=== PATIENT | female | born 1935 | race Caucasian/White ===

== ENCOUNTER 2018-10-28 21:04 | Inpatient (IN) ==
--- NOTE | 2018-10-28 23:27 | XR ---
EXAM DATE: 10/28/2018 11:16 PM EST AGE/SEX: 83 years / Female INDICATIONS: Evaluate for pneumonia, pneumothorax or communicable disease. Post fall left hip pain. CLINICAL DATA: This is the patient's initial encounter. Patient reports that signs and symptoms have been present for 1 day and indicates a pain score of 0/10. MEDICAL/SURGICAL HISTORY: Gastroesophageal reflux disease. None. COMPARISON: No prior exams available for comparison. FINDINGS: A single AP view of the chest demonstrates the lungs to be symmetrically aerated without evidence of mass, infiltrate or effusion. The cardiomediastinal contours are unremarkable. Osseous structures a re intact. CONCLUSION: 1. No acute cardiopulmonary disease. Electronically signed by: Freddy Hawthorne MD Board Certified Radiologist 10/28/2018 11:25 PM EST
--- NOTE | 2018-10-28 23:28 | XR ---
EXAM DATE: 10/28/2018 11:19 PM EST AGE/SEX: 83 years / Female INDICATIONS: Left hip pain post fall tonight. CLINICAL DATA: This is the patient's initial encounter. Patient reports that signs and symptoms have been present for 1 day and indicates a pain score of 9/10. MEDICAL/SURGICAL HISTORY: Gastroesophageal reflux disease. None. COMPARISON: No prior exams available for comparison. FINDINGS: Intertrochanteric left femoral neck fracture with slight cephalad angulation. Remaining osseous struc tures are intact. Joint spaces are anatomic. No radiopaque foreign bodies. CONCLUSION: 1. Left femoral neck intertrochanteric fracture. Electronically signed by: Freddy Hawthorne MD Board Certified Radiologist 10/28/2018 11:26 PM EST
--- NOTE | 2018-10-28 23:28 | XR ---
EXAM DATE: 10/28/2018 11:18 PM EST AGE/SEX: 83 years / Female INDICATIONS: Left hip pain post fall tonight. CLINICAL DATA: This is the patient's initial encounter. Patient reports that signs and symptoms have been present for 1 day and indicates a pain score of 9/10. MEDICAL/SURGICAL HISTORY: Gastroesophageal reflux disease. None. COMPARISON: No prior exams available for comparison. FINDINGS: There is an intertrochanteric left femoral neck fracture. Remaining osseous structures are intact. No radiopaque foreign bodies. CONCLUSION: 1. Left femoral intertrochanteric fracture. Electronically signed by: Freddy Hawthorne MD Board Certified Radiologist 10/28/2018 11:27 PM EST
--- NOTE | 2018-10-28 23:29 | XR ---
EXAM DATE: 10/28/2018 11:22 PM EST AGE/SEX: 83 years / Female INDICATIONS: Left ankle pain post fall tonight. CLINICAL DATA: This is the patient's initial encounter. Patient reports that signs and symptoms have been present for 1 day and indicates a pain score of 4/10. MEDICAL/SURGICAL HISTORY: Gastroesophageal reflux disease. None. COMPARISON: No prior exams available for comparison. FINDINGS: Bony structures are intact and in normal alignment. Joints are intact without dislocation or signifi cant arthropathy. Osseous density is normal. Soft tissues are unremarkable. No radiopaque foreign bodies seen. CONCLUSION: 1. No definite acute fracture. Electronically signed by: Freddy Hawthorne MD Board Certified Radiologist 10/28/2018 11:28 PM EST
[2018-10-28 23:30] LABS: Bilirubin,Urine Negative (Negative); Clarity,Urine Slightly Cloudy (Clear); Color,Urine Yellow (Yellw/Straw); Glucose,Urine (UA) Negative (Negative); Leukocyte Esterase,Urine Small (Negative); Nitrite,Urine Negative (Negative); Specific Gravity,Urine 1.025 (1.002-1.035); Urobilinogen,Urine 0.2 mg/dL (Less than 2)
--- NOTE | 2018-10-28 23:31 | ED ---
HPI General Chief Complaint: Fall Stated Complaint: Fall Time Seen by Provider: 10/28/18 22:10 Source: patient Mode of arrival: ambulatory Limitations: no limitations History of Present Illness HPI Narrative: 83-year-old female presents to the emergency department by private transportation from home where she had an unwitnessed non-syncopal slip and fall. Patient landed on her left side injuring her left hip left knee and left ankle. Patient states she has been unable to weight-bear since that time. Family members carried her to the hospital. Patient states she did not hit her head did not have loss of consciousness did not injure her neck shoulder elbow wrist left upper extremity left chest wall chest abdomen or pelvis also denies any back pain. Patient complains of pain in the left hip primarily and also pain to the left knee and ankle. No reported deformity. Patient is noted to have shortening and external rotation of the left lower extremity. No previous history of hip injury or hip fracture or pelvic fracture. Patient does have history of dyslipidemia anxiety and restless leg syndrome. Patient takes no blood thinning agents reportedly. Fall occurred approximately 8 PM. MD complaint: Reports fall Onset (ago): hour(s) (3) Fall from: standing Fall witnessed: no Place fall occurred: home Loss of consciousness: none Prolonged down time: no Symptoms prior to fall: Reports none Context: Reports tripped/slipped Location of injury: Denies head, face, mouth, eyes, neck, chest, back, abdomen, pelvis, genitals and buttocks Location of injury - extremities: Left: thigh, knee and ankle Severity: severe Severity scale (1-10): 8 Quality: Reports aching Associated symptoms (after fall): Reports unable to walk; Denies headache, neck pain, numbness, weakness, chest pain, shortness of breath, abdominal pain, hematuria, lightheaded, vertigo and confusion Related Data Home Medications Medication Instructions Recorded Confirmed atorvastatin 20 mg PO QPM 10/29/18 10/29/18 duloxetine 60 mg PO DAILY 10/29/18 10/29/18 rabeprazole 20 mg PO DAILY 10/29/18 10/29/18 Allergies Allergy/AdvReac Type Severity Reaction Status Date / Time niacin Allergy Rash Verified 10/29/18 00:37 Penicillins Allergy Rash Verified 10/28/18 22:08 Review of Systems ROS: all other systems reviewed are negative [facility] Medical History Medical History Anxiety (Acute) DVT (deep venous thrombosis) (Acute) GERD (gastroesophageal reflux disease) (Acute) Surgical History Surgical History H/O dilation and curettage (Acute) Social History Social History Substance History: No History of Abuse Second Hand Smoke Exposure: No Smoking Status: Never smoker How Often Do You Have a Drink Containing Alcohol: Never Recent Travel in [facility] within the Last 8 Weeks: No Recent Out of Country Travel within the Last 8 Weeks: No Immunization History Tetanus Immunization: Unsure Exam Narrative Exam Narrative: GENERAL: Well-nourished, well-developed patient. GCS 15. SKIN: Focused skin assessment warm/dry. HEAD: Normocephalic. Atraumatic. No scalp soft tissue swelling abrasion ecchymosis erythema bony abnormality to palpation. EYES: No scleral icterus. No injection or drainage. ENT: Mucous membranes moist airway is patent NECK: Supple, trachea midline. No JVD or lymphadenopathy. No midline tenderness to direct palpation along the cervical spine no bony step-off CARDIOVASCULAR: Regular rate and rhythm without murmurs, gallops, or rubs. RESPIRATORY: Breath sounds equal bilaterally. No accessory muscle use. GASTROINTESTINAL: Abdomen soft, non-tender, nondistended. MUSCULOSKELETAL: No cyanosis, or edema. Attention left lower extremity shortened and externally rotated. Bilateral radial pulses 2+ to palpation bilateral dorsalis pedis pulses and posterior tibialis pulses 2+ to palpation with brisk capillary refill less than 2 seconds per digit. Patient has no knee or ankle soft tissue swelling ecchymosis or deformity. Patient does have tenderness and mild soft tissue swelling to the lateral aspect of the left hip. Pelvic rock is stable. BACK: Nontender without obvious deformity. No CVA tenderness. Course Initial Documented Vital Signs Temperature 98.5 F 10/28/18 22:05 Pulse Rate 97 H 10/28/18 22:05 Respiratory Rate 18 10/28/18 22:05 Blood Pressure 199/103 H 10/28/18 22:05 Pulse Oximetry 98 10/28/18 22:05 Last Documented Vital Signs Temperature 98.5 F 10/28/18 22:05 Pulse Rate 95 H 10/29/18 03:08 Respiratory Rate 18 10/29/18 03:08 Blood Pressure 174/73 H 10/29/18 03:08 Pulse Oximetry 98 10/29/18 03:08 Medical Decision Making MDM Narrative Medical decision making narrative: 83-year-old female status post non-syncopal fall landing on her left lower extremity presents with shortening and external rotation consistent with hip fracture. IV access obtained specimens collected and sent for resulting imaging studies ordered Chest x-ray shows no acute process EKG is sinus rhythm with no acute abnormality Left hip with pelvis shows acute intertrochanteric fracture; left femur x-ray acute left intertrochanteric fracture and distally no evidence of distal femur or knee abnormality on AP and lateral views and ankle shows no evidence of fractures luxation dislocation. Patient's case discussed with [facility] MD for admission [facility] am consilt to Orthopedist for hip repair; patient and family aware which patient and family are agreeable. Medical Screen Exam Complete: Yes Emergency Medical Condition: Yes Lab Data Result diagrams: 10/28/18 23:45 10/28/18 23:45 Lab Results 10/28/18 10/28/18 10/28/18 Range/Units 21:59 23:45 23:45 CBC w Diff Auto diff final WBC 13.4 H (4.0-11.0) th/mm3 RBC 4.50 (4.00-5.30) mil/mm3 Hgb 13.2 (11.6-15.3) gm/dL Hct 40.2 (35.0-46.0) % MCV 89.4 (80.0-100.0) fL MCH 29.4 (27.0-34.0) pg MCHC 32.9 (32.0-36.0) % RDW 12.8 (11.6-17.2) % Plt Count 232 (150-450) th/mm3 MPV 8.9 (7.0-11.0) fL Neut % (Auto) 90.0 H (16.0-70.0) % Lymph % (Auto) 6.6 L (9.0-44.0) % [place] % (Auto) 3.0 (0.0-8.0) % Eos % (Auto) 0.2 (0.0-4.0) % Baso % (Auto) 0.2 (0.0-2.0) % Neut # (Auto) 12.1 H (1.8-7.7) th/mm3 Lymph # (Auto) 0.9 L (1.0-4.8) th/mm3 [place] # (Auto) 0.4 (0.0-0.9) th/mm3 Eos # (Auto) 0.0 (0.0-0.4) th/mm3 Baso # (Auto) 0.0 (0.0-0.2) th/mm3 WBC Differential . Differential Comment . PT 10.5 (9.8-11.6) sec INR 1.0 Ratio APTT 26.6 (23.4-31.7) sec Sodium (136-145) meq/L Potassium (3.5-5.1) meq/L Chloride (98-107) meq/L Carbon Dioxide (21.0-32.0) meq/L Anion Gap (5-15) meq/L BUN (7-18) mg/dL Creatinine (0.50-1.00) mg/dL Estimated GFR (>89) mL/min Random Glucose (74-106) mg/dL Calcium (8.5-10.1) mg/dL Total Bilirubin (0.2-1.0) mg/dL AST (15-37) U/L ALT (10-53) U/L Alkaline Phosphatase (45-117) U/L Total Protein (6.4-8.2) g/dL Albumin (3.4-5.0) g/dL Urine Color Yellow (Yellw/Straw) Urine Clarity Slightly cloudy (Clear) Urine pH 6.0 (5.0-8.5) Ur Specific [place] 1.025 (1.002-1.035) Urine Protein Trace (Neg-Trace) mg/dL Urine Glucose (UA) Negative (Negative) mg/dL Urine Ketones Trace H (Negative) mg/dL Urine Occult Blood Trace (Negative) Urine Nitrate Negative (Negative) Urine Bilirubin Negative (Negative) Urine Urobilinogen 0.2 (Less than 2) mg/dL Ur Leukocyte Esterase Small H (Negative) Urine WBC 0-5 (0-5) /hpf Ur Squamous Epith Cells 0-5 (0-5) /hpf Amorphous Sediment Few H (None) /hpf Micro UA Comment Cath-culture not ind Ur Microscopic Review Microscopic reviewed Blood Type Blood Type Recheck Antibody Screen 10/28/18 10/29/18 Range/Units 23:45 00:00 CBC w Diff WBC (4.0-11.0) th/mm3 RBC (4.00-5.30) mil/mm3 Hgb (11.6-15.3) gm/dL Hct (35.0-46.0) % MCV (80.0-100.0) fL MCH (27.0-34.0) pg MCHC (32.0-36.0) % RDW (11.6-17.2) % Plt Count (150-450) th/mm3 MPV (7.0-11.0) fL Neut % (Auto) (16.0-70.0) % Lymph % (Auto) (9.0-44.0) % [place] % (Auto) (0.0-8.0) % Eos % (Auto) (0.0-4.0) % Baso % (Auto) (0.0-2.0) % Neut # (Auto) (1.8-7.7) th/mm3 Lymph # (Auto) (1.0-4.8) th/mm3 [place] # (Auto) (0.0-0.9) th/mm3 Eos # (Auto) (0.0-0.4) th/mm3 Baso # (Auto) (0.0-0.2) th/mm3 WBC Differential Differential Comment PT (9.8-11.6) sec INR Ratio APTT (23.4-31.7) sec Sodium 137 (136-145) meq/L Potassium 3.5 (3.5-5.1) meq/L Chloride 103 (98-107) meq/L Carbon Dioxide 26.9 (21.0-32.0) meq/L Anion Gap 7 (5-15) meq/L BUN 13 (7-18) mg/dL Creatinine 0.69 (0.50-1.00) mg/dL Estimated GFR 81 L (>89) mL/min Random Glucose 119 H (74-106) mg/dL Calcium 8.7 (8.5-10.1) mg/dL Total Bilirubin 0.5 (0.2-1.0) mg/dL AST 22 (15-37) U/L ALT 22 (10-53) U/L Alkaline Phosphatase 85 (45-117) U/L Total Protein 7.5 (6.4-8.2) g/dL Albumin 3.9 (3.4-5.0) g/dL Urine Color (Yellw/Straw) Urine Clarity (Clear) Urine pH (5.0-8.5) Ur Specific [place] (1.002-1.035) Urine Protein (Neg-Trace) mg/dL Urine Glucose (UA) (Negative) mg/dL Urine Ketones (Negative) mg/dL Urine Occult Blood (Negative) Urine Nitrate (Negative) Urine Bilirubin (Negative) Urine Urobilinogen (Less than 2) mg/dL Ur Leukocyte Esterase (Negative) Urine WBC (0-5) /hpf Ur Squamous Epith Cells (0-5) /hpf Amorphous Sediment (None) /hpf Micro UA Comment Ur Microscopic Review Blood Type B Positive Blood Type Recheck Required Antibody Screen Negative Imaging Data Radiologist's impression: Ankle X-Ray 10/28/18 22:10 CONCLUSION: 1. No definite acute fracture. Chest X-Ray 10/28/18 22:11 CONCLUSION: 1. No acute cardiopulmonary disease. Femur X-Ray 10/28/18 22:11 CONCLUSION: 1. Left femoral intertrochanteric fracture. Hip X-Ray 10/28/18 22:11 CONCLUSION: 1. Left femoral neck intertrochanteric fracture. ECG Data EKG Prior to Arrival: No Attestation: I personally reviewed and interpreted this ECG as follows: (EKG: Normal sinus rhythm rate [address] elevation injury pattern or ectopy noted normal axis and intervals are noted) Discharge Plan Discharge Disposition Patient Disposition: ED Admit(ED Internal Use Only) Discharge Order Discharge Orders: ED Use Only Admit Order (Routine); Ordered 10/29/18 Ordered By: Olga Mccann Discharge Details Diagnosis: Closed hip fracture Physicians Team ED Provider: Olga Mccann Primary Care Provider: UNKNOWN, Attending Provider: Jo Ann Crum Other Providers: Marcello Harris Discharge Interventions Interventions: ED Discharge Assessment Last Done: 10/29/18 03:34 Status ED Status: Admitted Patient
[2018-10-28 23:38] LABS: Amorphous Sediment,Urine Few /hpf; Squamous Epithelial Cell,Urine 0-5 /hpf (0-5); WBC,Urine 0-5 /hpf (0-5)
[2018-10-28] MEDS ORDERED: Morphine Sulfate Inj 2 MG/ML Vial IV.PUSH ONE (23:43)
[2018-10-28] MEDS ORDERED: Sod Chloride 0.9% Inj 1,000 ML IV.CONT SCH (23:45)
[2018-10-29] MEDS ORDERED: Bisacodyl 10 MG Supp RECTAL PRN (00:05)
[2018-10-29] MEDS ORDERED: Acetaminophen 325 MG Tablet PO PRN (00:05)
[2018-10-29 00:42] LABS: Baso % (Auto) 0.2 % (0.0-2.0); Eos % (Auto) 0.2 % (0.0-4.0); Hematocrit 40.2 % (35.0-46.0); Hemoglobin 13.2 gm/dL (11.6-15.3); Lymph # (Auto) 0.9 th/mm3 (1.0-4.8); Lymph % (Auto) 6.6 % (9.0-44.0); Mean Corpuscular HGB Conc 32.9 % (32.0-36.0); Mean Corpuscular Hemoglobin 29.4 pg (27.0-34.0); Mean Corpuscular Volume 89.4 fL (80.0-100.0); Mean Platelet Volume 8.9 fL (7.0-11.0); Mono # (Auto) 0.4 th/mm3 (0.0-0.9); Neut # (Auto) 12.1 th/mm3 (1.8-7.7); Platelet Count 232 th/mm3 (150-450); Red Cell Distribution Width 12.8 % (11.6-17.2); White Blood Count 13.4 th/mm3 (4.0-11.0)
[2018-10-29] MEDS: Sod Chloride 0.9% Inj 1,000 ML IV.CONT SCH ×2 (00:46→09:14)
[2018-10-29 00:50] LABS: Chloride 103 meq/L (98-107); Potassium 3.5 meq/L (3.5-5.1); Sodium 137 meq/L (136-145)
[2018-10-29 00:53] LABS: Albumin 3.9 g/dL (3.4-5.0); Anion Gap 7 meq/L (5-15); Blood Urea Nitrogen 13 mg/dL (7-18); Calcium 8.7 mg/dL (8.5-10.1); Carbon Dioxide 26.9 meq/L (21.0-32.0); Glucose,Random 119 mg/dL (74-106)
[2018-10-29 00:56] LABS: Activated Partial Thrombo Time 26.6 sec (23.4-31.7); Alanine Aminotransferase 22 U/L (10-53); Aspartate Aminotransferase 22 U/L (15-37); Glomerular Filtration Rate 81 mL/min (>89); Prothrombin Time 10.5 sec (9.8-11.6)
[2018-10-29 00:58] LABS: Total Protein 7.5 g/dL (6.4-8.2)
[2018-10-29 00:59] LABS: Alkaline Phosphatase 85 U/L (45-117)
[2018-10-29] MEDS ORDERED: Sodium Chloride 0.9% 2 ML Flush PRN IV.FLUSH (04:27)
[2018-10-29] MEDS: Morphine Sulfate Inj 2 MG/ML Vial IV.PUSH PRN ×3 (04:39→16:36)
--- NOTE | 2018-10-29 05:28 | P.HPIM ---
History of Present Illness Primary Care Physician: UNKNOWN Ms. Alfonso is a pleasant and active 83 year-old female with a history of dyslipidemia, anxiety, and GERD who presented to the ER in [place] after a slip and fall on a rug at home landing on her left side on a tile floor with subsequent left hip, knee, and ankle pain. Her daughter, who is at the bedside , states that she was holding her left lower extremity at an unusual ankle after the fall and it became difficult for her to bear any weight on it. Imaging was significant for left femoral neck intertrochanteric fracture. The patient is seen in her hospital room. She reports the pain was initially severe and aching but is relieved with the IV morphine. She denies any recent illness, fever, chills, chest pain, shortness of breath, nausea, vomiting, or diarrhea. Inpatient Certification Inpatient Certification: I certify that the inpatient services were ordered in accordance with Medicare regulations governing the order. This includes certification that hospital inpatient services are reasonable and necessary and in the case of services not specified as inpatient-only under 42 CFR 419.22(n), that they are appropriately provided as inpatient services in accordance to with the 2-midnight benchmark under 43 CFR 412.3(e) Estimated Total Length of Stay (Days): 2 Plans for Post Hospital Care: Not yet determined Review of Systems Review of Systems: all other systems reviewed are negative [facility] Medical History Medical History Anxiety (Acute) Dyslipidemia (Acute) GERD (gastroesophageal reflux disease) (Acute) Thrombophlebitis (Acute) Varicose veins of both lower extremities (Acute) Surgical History Surgical History H/O dilation and curettage (Acute) History of vein stripping (Acute) Social History Social History Substance History: No History of Abuse Second Hand Smoke Exposure: No Smoking Status: Former smoker Cigarettes Per Day: 3 Years Smoked: 30 Pack-Years: 4.50 Smoking End Date: 3 years ago How Often Do You Have a Drink Containing Alcohol: Never Recent Travel in [place] within the Last 8 Weeks: No Recent Out of Country Travel within the Last 8 Weeks: No Immunization History Tetanus Immunization: Unsure Hx Influenza Vaccine This Season: Yes Medications and Allergies Allergies Allergy/AdvReac Type Severity Reaction Status Date / Time niacin Allergy Rash Verified 10/29/18 00:37 Penicillins Allergy Rash Verified 10/28/18 22:08 Home Medications Medication Instructions Recorded Confirmed Type atorvastatin 20 mg PO QPM 10/29/18 10/29/18 History duloxetine 60 mg PO DAILY 10/29/18 10/29/18 History rabeprazole 20 mg PO DAILY 10/29/18 10/29/18 History Active Medications: Active Medications Acetaminophen (Tylenol) 650 mg PO Q4H PRN PRN Reason: Temp > 100.4 Al Hydroxide/Mg Hydroxide (Milk Of Magnesia Liq) 30 ml PO Q12H PRN PRN Reason: Mild Constipation Atorvastatin Calcium (Lipitor) 20 mg PO QPM [facility] Bisacodyl (Dulcolax Supp) 10 mg RECTAL DAILY PRN PRN Reason: SEVERE CONSITIPATION Duloxetine HCl (Cymbalta) 60 mg PO DAILY [facility] Sodium Chloride (Ns Inj) 1,000 mls @ 100 mls/hr IV.CONT .Q10H [facility] Last Infusion: 10/29/18 03:31 Dose: 100 mls/hr Sodium Chloride (Ns Inj) 1,000 mls @ 100 mls/hr IV.CONT .Q10H [facility] Last Admin: 10/29/18 00:46 Dose: Not Given Lactulose (Lactulose Liq) 30 ml PO DAILY PRN PRN Reason: SEVERE CONSITIPATION Morphine Sulfate (Morphine Inj) 2 mg IV.PUSH Q4H PRN PRN Reason: PAIN SCALE 6 TO 10 Last Admin: 10/29/18 04:39 Dose: 2 mg Ondansetron HCl (Zofran Inj) 4 mg IV.PUSH Q6H PRN PRN Reason: NAUSEA OR VOMITING Last Admin: 10/29/18 04:39 Dose: 4 mg Pantoprazole Sodium (Protonix) 40 mg PO DAILY [facility] Senna/Docusate Sodium (Chacha-Colace) 1 tab PO BID [facility] Sennosides (Senokot) 17.2 mg PO Q12H PRN PRN Reason: Moderate Constipation Sodium Chloride (Ns Flush) 2 ml IV.FLUSH BID [facility] Sodium Chloride (Ns Flush) 2 ml IV.FLUSH PRN PRN PRN Reason: FLUSH AFTER USING IV ACCESS Physical Exam Vital signs: Vital Signs 10/28/18 22:05 10/28/18 22:10 10/29/18 00:30 Temperature 98.5 F Pulse Rate 97 H 98 H 98 H Respiratory Rate 18 16 Blood Pressure 199/103 H 158/91 H Pulse Oximetry 98 98 02/10/19 00:33 10/29/18 03:08 Temperature Pulse Rate 95 H Respiratory Rate 16 18 Blood Pressure 174/73 H Pulse Oximetry 98 Intake & Output 10/28/18 10/28/18 10/29/18 06:59 18:59 06:59 Intake Total 500 / 500 Balance 500 / 500 Weight 63.5 kg Intake: IV 500 / 500 NS Inj 1,000 ML @ 100 mls/hr IV 500 / 500 .CONT .Q10H [facility] Rx#:[id number] Other: Weight On Admission 63.5 kg Narrative: GENERAL: This is a well-nourished, well-developed patient, in no apparent distress. SKIN: No rashes, ecchymoses or lesions. Cool and dry. Skin is pale. HEAD: Atraumatic. Normocephalic. EYES: No scleral icterus. No injection or drainage. ENT: Nose without bleeding, purulent drainage. NECK: Trachea midline. No JVD or lymphadenopathy. CARDIOVASCULAR: Regular rate and rhythm without murmurs, gallops, or rubs. RESPIRATORY: Clear to auscultation. Breath sounds equal bilaterally. No wheezes , rales, or rhonchi. GASTROINTESTINAL: Abdomen soft, non-tender, nondistended. No guarding. MUSCULOSKELETAL: DP +2 bilateral, intact sensation, pain with left leg movement and external rotation. NEUROLOGICAL: Awake and alert. Motor and sensory grossly within normal limits. Normal speech. . Results Labs CBC & Chem 7: 10/28/18 23:45 10/28/18 23:45 Imaging Impressions Ankle X-Ray 10/28/18 22:10 CONCLUSION: 1. No definite acute fracture. Chest X-Ray 10/28/18 22:11 CONCLUSION: 1. No acute cardiopulmonary disease. Femur X-Ray 10/28/18 22:11 CONCLUSION: 1. Left femoral intertrochanteric fracture. Hip X-Ray 10/28/18 22:11 CONCLUSION: 1. Left femoral neck intertrochanteric fracture. Caprini VTE Risk Assessment Caprini VTE Risk Assessment: Moderate/High Risk (score >= 2) Caprini Risk Assessment Model: Point Value = 1 Point Value = 2 Point Value = 3 Point Value = 5 Age 41-60 Minor surgery BMI > 25 kg/m2 Swollen legs Varicose veins or History of unexplained or recurrent spontaneous Oral contraceptives or hormone replacement Sepsis (< 1 month) Serious lung disease, including pneumonia (< 1 month) Abnormal pulmonary function Acute myocardial infarction Congestive heart failure (< 1 month) History of inflammatory bowel disease Medical patient at bed rest Age 61-74 Arthroscopic surgery Major open surgery (> 45 min) Laparoscopic surgery (> 45 min) Malignancy Confined to bed (> 72 hours) Immobilizing plaster cast Central venous access Age >= 75 History of VTE Family history of VTE Factor V Leiden Prothrombin [id number] Lupus anticoagulant Anticardiolipin antibodies Elevated serum homocysteine Heparin-induced thrombocytopenia Other congenital or acquired thrombophilia Stroke (< 1 month) Elective arthroplasty Hip, pelvis, or leg fracture Acute spinal cord injury (< 1 month) Prophylaxis Regimen: Total Risk Factor Score Risk Level Prophylaxis Regimen 0-1 Low Early ambulation 2 Moderate Order ONE of the following: *Sequential Compression Device (SCD) *Heparin 5000 units SQ BID 3-4 Higher Order ONE of the following medications: *Heparin 5000 units SQ TID *Enoxaparin/Lovenox 40 mg SQ daily (WT < 150 kg, CrCl > 30 mL/min) *Enoxaparin/Lovenox 30 mg SQ daily (WT < 150 kg, CrCl > 10-29 mL/min) *Enoxaparin/Lovenox 30 mg SQ BID (WT < 150 kg, CrCl > 30 mL/min) AND/OR *Sequential Compression Device (SCD) 5 or more Highest Order ONE of the following medications: *Heparin 5000 units SQ TID (Preferred with Epidurals) *Enoxaparin/Lovenox 40 mg SQ daily (WT < 150 kg, CrCl > 30 mL/min) *Enoxaparin/Lovenox 30 mg SQ daily (WT < 150 kg, CrCl > 10-29 mL/min) *Enoxaparin/Lovenox 30 mg SQ BID (WT < 150 kg, CrCl > 30 mL/min) AND *Sequential Compression Device (SCD) Assessment and Plan Plan Ms. Alfonso is a pleasant and active 83 year-old female with a left femoral neck intertrochanteric fracture. Left hip fracture -consult to orthopedic surgery - appreciate assistance -N.p.o. -Morphine 2 mg IV every 4 hours as needed with bowel program -Incentive Spirometry to prevent pneumonia -Consult physical therapy -Consult case management for assistance with discharge planning Elevated blood pressure -Denies hypertension -BP elevated, likely secondary to pain and anxiety -clonidine given x 1 dose -monitor trends in bp and adjust treatment if needed Leukocytosis- likely reactive -WBC 13.4, UA not c/w UTI, CXR negative, afebrile -recheck cbc and monitor Dyslipidemia -Continue home atorvastatin Anxiety -Continue home duloxetine -GERD -Continue home AcipHex or formulary equivalent DVT prophylaxis -SCDs -chemoprophylaxis per orthopedic surgeon patient was seen and examined today. 83 y/o female who was admitted with left hip frcature. at the time of my evaluation she was resting fairly comfortably with no acute distress. pain seems to be fairly controlled. on exam; patient is awake and alert/ bilateral air entry present/ abdomen is soft/ S1/S2 heard/ no pedal edema. d/w the family at the bedside. awaiting ortho intervention. H&P: Quality VTE Deep Vein Thrombosis/Pulmonary Embolism Present on Admission: No
[2018-10-29] MEDS ORDERED: Chlorhexidine Gluconate 2% 1 Pack (2 Cloths) TOPICAL ONE (06:11)
[2018-10-29] MEDS ORDERED: Sodium Chlor 0.9% Inj 500 ML IV.SIG SCH (07:00)
[2018-10-29] MEDS ORDERED: Sodium Chloride 0.9% 2 ML Flush BID IV.FLUSH SCH (09:00)
[2018-10-29] MEDS: Duloxetine 60 MG DR Capsule PO SCH (09:13)
[2018-10-29] MEDS: Senna/Docusate Sodium 8.6/50 MG Tablet PO SCH ×2 (09:14→21:19)
[2018-10-29] MEDS ORDERED: Neostigmine Inj 5 MG/5 ML Syringe IV.PUSH ONE (11:03)
[2018-10-29] MEDS ORDERED: Phenylephrine/NS 1000 MCG/10ML Syringe IV.PUSH ONE (11:03)
[2018-10-29] MEDS ORDERED: Lidocaine PF 1% Inj 5 ML Syringe OTHER ONE (11:03)
[2018-10-29] MEDS ORDERED: Glycopyrrolate Inj 1 MG/5 ML Syringe IV.PUSH ONE (11:03)
[2018-10-29] MEDS ORDERED: Clindamycin Inj 600 MG/4 ML Vial ONE (11:12)
--- NOTE | 2018-10-29 12:22 | P.OP ---
Procedure: PREOPERATIVE DIAGNOSIS: Left intertrochenteric hip fracture. POSTOPERATIVE DIAGNOSIS: Left intertrochenteric hip fracture. PROCEDURE PERFORMED: Left Trochenteric femoral intramedullary nailing. SURGEON: Dr. Marcello Jarvis M.D. DIRECTOR OF ASSESSING: ZEESHAN Perez. ANESTHESIA: General. ESTIMATED BLOOD LOSS: 250 mL. COMPLICATIONS: None. IMPLANTS USED: Biomet Affixus 11 by 180, 130 degree, 95mm lag screw JUSTIFICATION: This patient was seen in consultation by the undersigned as related to a left intertrochanteric hip fracture sustained. Clinical examination as well as x- rays confirmed the above named findings. The patient was counseled as to the risks, benefits, and alternatives to both operative versus nonoperative treatment as related to this injury. The risk of surgery were discussed which include but not limited to anesthesia, bleeding, infection, damage to nerves and blood vessels, incomplete healing, failure of hardware, blood clots, pulmonary embolism, and even . The patient has favored the benefits over risks and does wish to proceed with surgery as outlined above. Written consent has been obtained. Procedure in detail: Written consent was obtained from the patient. The patient was identified and taken to the operative room. The patient was placed supine on the operating room fracture table. The left foot was placed in the padded traction boot. The right leg placed in a padded well leg cuellar. All bony prominences and pressure points were well-padded. The left hip and lower extremity was then prepped and draped using isopropyl alcohol, Hibiclens, and DuraPrep solution. After a timeout was performed, a longitudinal incision was made over the lateral aspect of the left hip. The fascial layer was incised. A guidewire was used to gain entrance into the intramedullary canal of the femur from the tip of the greater trochanter. A cannulated entry reamer was then drilled over the guidewire to create an entry hole within the greater trochanter. Subsequently an intramedullary reagan was placed within the canal of the femur transversing the fracture. The 130 degree locking jig was used to place a guidepin centered into the femoral head on the AP and lateral fluoroscopic projections. Subsequently a lag screw was inserted over the guidewire for fixation of the fracture. The top locking screw was then secured to create a fixed angle sliding construct. The distal locking jig was used to place a single lateral to medial transverse static locking screw. Fluoroscopic imaging confirmed hardware placement and fracture reduction. The surgical wounds were thoroughly irrigated with sterile saline solution. The fascial layer was closed with #1 Vicryl suture. Subcutaneous layer closed with 3-0 Vicryl suture. Skin incision closed with Dermabond. Sterile dressings were applied. The patient tolerated the procedure well with no intraoperative complications noted. Marcello Hughes physician assistant shift supervisor certified was present during the entire procedure to include patient positioning and the procedure itself. The medical necessity of a physician assistant shift supervisor was indicated in this case due to the complexity of the procedure. He assisted with positioning of the patient along with exposure and manipulation of both extremity and the fracture. He assisted with both achieving and maintaining fracture reduction, along with the implantation of the internal fixation device. There was a mineral surveying technician available to assist with management of instruments, but was not able to assist with surgery. Surgeon: Marcello Harris MD
[2018-10-29] MEDS ORDERED: Zolpidem Tartrate 5 MG Tablet PO PRN (12:44)
[2018-10-29] MEDS ORDERED: Morphine Inj 4 MG/ML Vial IV.PUSH PRN (12:44)
[2018-10-29] MEDS ORDERED: Post-op Orders (for Pharmacy) OTHER STA (12:44)
--- NOTE | 2018-10-29 12:47 | XR ---
EXAM DATE: 10/29/2018 12:42 PM EST AGE/SEX: 83 years / Female INDICATIONS: Intertrochanteric nail placement. CLINICAL DATA: This is the patient's initial encounter. Patient reports that signs and symptoms have been present for 1 day and indicates a pain score of Nonresponsive. MEDICAL/SURGICAL HISTORY: Non-responsive. Non-responsive. COMPARISON: HPO, HIP LEFT W AP PELVIS 2V, 10/28/2018. . FINDINGS: Interim nail and reagan fixation of the intertrochanteric fracture of the left femur. Alignment is elan l. No acute complication demonstrated. CONCLUSION: Expected radiographic appearance post nail and reagan fixation of intertrochanteric fracture of the left femur. Normal alignment. Electronically signed by: Oscar Serra MD Board Certified Radiologist 10/29/2018 12:45 PM EST
[2018-10-29] MEDS ORDERED: fentaNYL Citrate Inj 100 MCG/2 ML Ampul ONE (13:02)
[2018-10-29] MEDS ORDERED: *morphine SULFATE 4 MG/ML PERIprocedure ONLY ONE (13:18)
--- NOTE | 2018-10-29 14:10 | ECG ---
Date Performed: 10/28/2018 Time Performed: 23:20:15 PTAGE: 83 years EKG: Sinus rhythm NORMAL ECG NO PREVIOUS TRACING DOCTOR: London Montano Interpretating Date/Time 10/29/2018 14:08:37
--- NOTE | 2018-10-29 14:40 | MB ---
cc: Marcello Harris MD DATE: 10/29/2018 REASON FOR CONSULTATION: Left intertrochanteric hip fracture. HISTORY OF PRESENT ILLNESS: The patient is an 83-year-old female with history of hyperlipidemia, anxiety, gastric reflux, who presents to [facility] Emergency Room after a slip and fall injury at home, landing on her left hip. She noted the onset of left hip pain. She can stand and walk, bear weight, or ambulate her. She was brought to [facility] Emergency Room and x-rays confirm evidence of a displaced comminuted left intertrochanteric hip fracture. She was admitted to medical service for orthopedic surgery consult for further evaluation and management of the injury and condition. Pain is severe and constant, worse with any movement, no numbness or tingling of symptoms. She denies hitting her head. Denies loss of consciousness. PAST MEDICAL HISTORY: Anxiety, hyperlipidemia, gastric reflux, thrombophlebitis, varicose veins. PAST SURGICAL HISTORY: D and C, vein stripping. SOCIAL HISTORY: Former smoker, stopped smoking 3 years ago. Does not drink alcohol. Denies drugs. FAMILY HISTORY: Reviewed, noncontributory. REVIEW OF SYSTEMS: Negative for 10 systems, other than HPI. ALLERGIES: NIACIN AND PENICILLIN. MEDICATIONS: 1. Atorvastatin. 2. Duloxetine. 3. Rabeprazole. PHYSICAL EXAM: VITAL SIGNS: Pulse 97, respirations 18, blood pressure 199/103. HEENT: Normocephalic, atraumatic. Pupils round. Extraocular motions intact. NECK: Supple. LUNGS: Clear. HEART: Regular rate and rhythm. ABDOMEN: Soft, nontender. EXTREMITIES: Left hip has shortening and external rotation and pain with passive motion of the left hip. NEUROLOGIC: She is awake, alert. Nonfocal examination. Her mood and affect are appropriate. LABORATORY DATA: White blood cell count 13, hemoglobin 13, hematocrit 40, platelets 232. Glucose 119, BUN 13, creatinine 0.69. DIAGNOSTIC DATA: X-rays reveal a comminuted left intertrochanteric hip fracture. IMPRESSION: This is an 83-year-old female status post fall, left comminuted displaced intertrochanteric hip fracture. PLAN: I discussed the diagnosis and treatment options to include nonoperative treatment versus surgery. Surgery would consist of open reduction and internal fixation. Risks of surgery were discussed which include, but are not limited to, anesthesia, bleeding, infection, damage to nerves and blood vessels, failure of hardware, blood clots, pulmonary embolism, and even . The patient's pain is severe. She favors the benefits over the risks and she wishes to proceed with surgery. Written consent has been obtained and the surgical site has been marked. MD MYRON Bennett/facundo , 12:28 PM , 12:33 PM
[2018-10-29] MEDS: CLINDAMYCIN IV.SIG SCH (21:18)
[2018-10-29] MEDS: SODIUM CHLOR 0.9% IV.SIG SCH (21:18)
[2018-10-30] MEDS: Sod Chloride 0.9% Inj 1,000 ML IV.CONT SCH ×3 (00:40→18:24)
[2018-10-30] MEDS: CLINDAMYCIN IV.SIG SCH ×2 (03:52→11:26)
[2018-10-30] MEDS: SODIUM CHLOR 0.9% IV.SIG SCH ×2 (03:52→11:26)
[2018-10-30] MEDS: Morphine Sulfate Inj 2 MG/ML Vial IV.PUSH PRN (04:20)
[2018-10-30 06:40] LABS: Baso % (Auto) 0.3 % (0.0-2.0); Eos % (Auto) 0.6 % (0.0-4.0); Hematocrit 25.5 % (35.0-46.0); Hemoglobin 8.8 gm/dL (11.6-15.3); Lymph # (Auto) 1.4 th/mm3 (1.0-4.8); Lymph % (Auto) 19.3 % (9.0-44.0); Mean Corpuscular HGB Conc 34.3 % (32.0-36.0); Mean Corpuscular Hemoglobin 30.4 pg (27.0-34.0); Mean Corpuscular Volume 88.6 fL (80.0-100.0); Mean Platelet Volume 8.9 fL (7.0-11.0); Mono # (Auto) 0.5 th/mm3 (0.0-0.9); Mono % (Auto) 6.4 % (0.0-8.0); Neut # (Auto) 5.3 th/mm3 (1.8-7.7); Neut % (Auto) 73.4 % (16.0-70.0); Platelet Count 155 th/mm3 (150-450); Red Blood Count 2.88 mil/mm3 (4.00-5.30); Red Cell Distribution Width 13.1 % (11.6-17.2); White Blood Count 7.3 th/mm3 (4.0-11.0)
[2018-10-30 07:01] LABS: Albumin 3.1 g/dL (3.4-5.0); Anion Gap 9 meq/L (5-15); Aspartate Aminotransferase 23 U/L (15-37); Blood Urea Nitrogen 12 mg/dL (7-18); Carbon Dioxide 26.3 meq/L (21.0-32.0); Chloride 105 meq/L (98-107); Glomerular Filtration Rate 72 mL/min (>89); Glucose,Random 122 mg/dL (74-106); Sodium 140 meq/L (136-145)
[2018-10-30 07:02] LABS: Alanine Aminotransferase 18 U/L (10-53)
[2018-10-30 07:04] LABS: Alkaline Phosphatase 65 U/L (45-117)
[2018-10-30] MEDS: Duloxetine 60 MG DR Capsule PO SCH (09:28)
[2018-10-30] MEDS: Senna/Docusate Sodium 8.6/50 MG Tablet PO SCH ×2 (09:28→20:25)
[2018-10-30] MEDS: Folic Acid 1 MG Tablet PO SCH (09:28)
[2018-10-30] MEDS: Multivitamin/Minerals Therapeutic Tablet PO SCH (09:28)
--- NOTE | 2018-10-30 10:24 | P.PNIM ---
Subjective Interval history: f/u; hip fracture in no acute distress. pain is controlled. no dizziness or sob. Physical Exam Vital signs: Vital Signs 10/29/18 12:48 10/29/18 13:00 10/29/18 13:15 Temperature 97.7 F Pulse Rate 111 H 84 83 Respiratory Rate 21 17 17 Blood Pressure 153/85 H 155/74 H 158/79 H Pulse Oximetry 100 100 100 10/29/18 13:30 10/29/18 16:00 10/29/18 18:25 Temperature 97.7 F Pulse Rate 84 84 Respiratory Rate 15 18 18 Blood Pressure 150/74 H 145/68 H Pulse Oximetry 100 100 10/29/18 20:01 10/29/18 20:20 10/29/18 21:25 Temperature 98.1 F Pulse Rate 90 86 Respiratory Rate 18 20 Blood Pressure 99/53 L Pulse Oximetry 96 10/30/18 00:02 10/30/18 00:05 10/30/18 00:31 Temperature 98.2 F Pulse Rate 101 H 97 H Respiratory Rate 20 20 Blood Pressure 116/53 L Pulse Oximetry 95 10/30/18 04:00 10/30/18 08:00 10/30/18 09:17 Temperature 99.0 F 98.8 F Pulse Rate 129 H 107 H Respiratory Rate 18 17 Blood Pressure 126/61 115/55 L Pulse Oximetry 96 88 L 93 L Intake & Output 10/29/18 10/30/18 10/30/18 18:59 06:59 18:59 Intake Total 800 / 800 2630 / 2630 54 / 54 Output Total 50 / 50 750 / 750 Balance 750 / 750 1880 / 1880 54 / 54 Weight 63.6 kg Intake: IV 2150 / 2150 54 / 54 LR 1000 mL Inj 1,000 ML @ 100 1000 / 1000 mls/hr IV.CONT .Q10H MAGNUS Rx#: [id number] NS Inj 1,000 ML @ 100 mls/hr IV 1000 / 1000 .CONT .Q10H MAGNUS Rx#:[id number] Cleocin Inj 600 MG In NS Inj 50 150 / 150 54 / 54 ML @ 100 mls/hr IV.SIG Q8H MAGNUS Rx#:[id number] Oral 480 / 480 Anesthesia Amount 800 / 800 Output: Estimated Blood Loss 50 / 50 Urine Amount (Catheter) 750 / 750 Straight 750 / 750 Other: # Voids 1 Date of Last Bowel Movement 10/28/18 10/28/18 Constitutional no acute distress Routine Respiratory Exam Present CTA bilaterally Routine Cardiovascular Exam Present RRR Routine Abdominal Exam Present soft Routine Extremities Exam Comments: no pedal edema. Routine Neurological Exam Present alert and oriented X3 Urinary Catheter Management Straight: Cath placed during this visit: yes Reason for continuing: Not indwelling catheter Insertion date: 10/30/18 Insertion time: 06:30 Results Labs CBC & Chem 7: 10/30/18 04:30 10/30/18 04:30 Imaging Imaging: Impressions Hip X-Ray 10/29/18 00:00 CONCLUSION: Expected radiographic appearance post nail and reagan fixation of intertrochanteric fracture of the left femur. Normal alignment. Assessment and Plan Plan Ms. Alfonso is a pleasant and active 83 year-old female with a left femoral neck intertrochanteric fracture. Left hip fracture -consult to orthopedic surgery - s/p intramedullary nailing. -continue with pain control. -Consulted physical therapy -Consulted case management for assistance with discharge planning Elevated blood pressure -Denies hypertension -BP elevated, likely secondary to pain and anxiety -monitor trends in bp and adjust treatment if needed Leukocytosis- likely reactive -resolved -Anemia- post-op will repeat H/H in am and transfuse as needed. Dyslipidemia -Continue home atorvastatin Anxiety -Continue home duloxetine -GERD -Continue home AcipHex or formulary equivalent DVT prophylaxis -subq Lovenox Progress Note: Quality VTE Deep Vein Thrombosis/Pulmonary Embolism Present on Admission: No
[2018-10-30] MEDS: Enoxaparin Inj 40 MG/0.4 ML Syringe SQ SCH (11:27)
--- NOTE | 2018-10-30 13:44 | P.PNOP ---
Subjective Interval history: pain controlled Physical Exam Vital signs: Vital Signs 10/29/18 16:00 10/29/18 18:25 10/29/18 20:01 Temperature 97.7 F Pulse Rate 84 90 Respiratory Rate 18 18 Blood Pressure 145/68 H Pulse Oximetry 100 10/29/18 20:20 10/29/18 21:25 10/30/18 00:02 Temperature 98.1 F Pulse Rate 86 101 H Respiratory Rate 18 20 Blood Pressure 99/53 L Pulse Oximetry 96 10/30/18 00:05 10/30/18 00:31 10/30/18 04:00 Temperature 98.2 F 99.0 F Pulse Rate 97 H 129 H Respiratory Rate 20 20 18 Blood Pressure 116/53 L 126/61 Pulse Oximetry 95 96 10/30/18 08:00 10/30/18 09:17 10/30/18 12:00 Temperature 98.8 F 98.0 F Pulse Rate 107 H 89 Respiratory Rate 17 18 Blood Pressure 115/55 L 108/58 L Pulse Oximetry 88 L 93 L Intake & Output 10/29/18 10/30/18 10/30/18 18:59 06:59 18:59 Intake Total 800 / 800 2630 / 2630 54 / 54 Output Total 50 / 50 750 / 750 Balance 750 / 750 1880 / 1880 54 / 54 Weight 63.6 kg Intake: IV 2150 / 2150 54 / 54 LR 1000 mL Inj 1,000 ML @ 100 1000 / 1000 mls/hr IV.CONT .Q10H MAGNUS Rx#: [id number] NS Inj 1,000 ML @ 100 mls/hr IV 1000 / 1000 .CONT .Q10H MAGNUS Rx#:[id number] Cleocin Inj 600 MG In NS Inj 50 150 / 150 54 / 54 ML @ 100 mls/hr IV.SIG Q8H MAGNUS Rx#:[id number] Oral 480 / 480 Anesthesia Amount 800 / 800 Output: Estimated Blood Loss 50 / 50 Urine Amount (Catheter) 750 / 750 Straight 750 / 750 Other: # Voids 1 Date of Last Bowel Movement 10/28/18 10/28/18 Narrative: in bed, nad, daughter in room dressing c/d/i neg jon nvi - Urinary Catheter Management Straight Cath placed during this visit: yes Reason for continuing: Not indwelling catheter Insertion date: 10/30/18 Insertion time: 06:30 Results - Labs CBC & Chem 7: 10/30/18 04:30 10/30/18 04:30 Laboratory Results - last 24 hr 10/30/18 10/30/18 04:30 04:30 WBC 7.3 RBC 2.88 L Hgb 8.8 L D Hct 25.5 L MCV 88.6 MCH 30.4 MCHC 34.3 RDW 13.1 Plt Count 155 D MPV 8.9 Neut % (Auto) 73.4 H Lymph % (Auto) 19.3 Milam % (Auto) 6.4 Eos % (Auto) 0.6 Baso % (Auto) 0.3 Neut # (Auto) 5.3 Lymph # (Auto) 1.4 Milam # (Auto) 0.5 Eos # (Auto) 0.0 Baso # (Auto) 0.0 WBC Differential . Differential Comment Auto diff final Sodium 140 Potassium 4.0 Chloride 105 Carbon Dioxide 26.3 Anion Gap 9 BUN 12 Creatinine 0.77 Estimated GFR 72 L Random Glucose 122 H Calcium 8.0 L Total Bilirubin 0.7 AST 23 ALT 18 Alkaline Phosphatase 65 Total Protein 6.0 L D Albumin 3.1 L D Assessment and Plan - Ortho Post Op Day # 1 - Assessment and Plan s/p L troch nail POD#1 50% pwb daily dressing changes asa 82 d/c planning f/up dr. espinosa 2 weeks
[2018-10-31 07:11] LABS: Hematocrit 20.6 % (35.0-46.0)
[2018-10-31] MEDS: Sod Chloride 0.9% Inj 1,000 ML IV.CONT SCH ×2 (07:56→15:34)
[2018-10-31] MEDS ORDERED: Sodium Chlor 0.9% Inj 250 ML IV.SIG SCH (08:00)
--- NOTE | 2018-10-31 08:09 | P.PNOP ---
Subjective Interval history: doing ok Physical Exam Vital signs: Vital Signs 10/30/18 09:17 10/30/18 12:00 10/30/18 16:00 Temperature 98.0 F 98 F Pulse Rate 89 93 H Respiratory Rate 18 18 Blood Pressure 108/58 L 101/53 L Pulse Oximetry 93 L 97 10/30/18 20:15 10/31/18 00:00 10/31/18 00:25 Temperature 99.1 F 100.4 F H Pulse Rate 95 H 109 H Respiratory Rate 16 17 17 Blood Pressure 120/56 L 139/63 Pulse Oximetry 98 95 10/31/18 04:35 Temperature 98.6 F Pulse Rate 98 H Respiratory Rate 17 Blood Pressure 120/59 L Pulse Oximetry 92 L Intake & Output 10/30/18 10/31/18 10/31/18 18:59 06:59 18:59 Intake Total 654 / 654 1868 / 1868 Balance 654 / 654 1868 / 1868 Weight 63.6 kg Intake: IV 54 / 54 1208 / 1208 LR 1000 mL Inj 1,000 ML @ 100 1000 / 1000 mls/hr IV.CONT .Q10H MAGNUS Rx#: [id number] Cleocin Inj 600 MG In NS Inj 50 54 / 54 ML @ 100 mls/hr IV.SIG Q8H MAGNUS Rx#:[id number] Cleocin Inj 600 MG In NS Inj 208 / 208 100 ML @ 208 mls/hr IV.SIG Q8H MAGNUS Rx#:[id number] Oral 600 / 600 660 / 660 Other: # Voids 2 2 Date of Last Bowel Movement 10/28/18 # Bowel Movements 0 0 Narrative: in bed, nad dressing c/d/i neg homans thigh soft nvi - Urinary Catheter Management Straight Cath placed during this visit: yes Reason for continuing: Not indwelling catheter Insertion date: 10/30/18 Insertion time: 06:30 Results - Labs CBC & Chem 7: 10/31/18 06:00 10/30/18 04:30 Laboratory Results - last 24 hr 10/31/18 06:00 Hgb 7.0 L Hct 20.6 L* Assessment and Plan - Ortho Post Op Day # 2 - Assessment and Plan s/p L troch nail POD#2 50% pwb daily dressing changes anemia - declines blood this am asa 82 d/c planning to snf f/up dr. espinosa 2 weeks
[2018-10-31] MEDS: Senna/Docusate Sodium 8.6/50 MG Tablet PO SCH ×2 (08:53→20:52)
[2018-10-31] MEDS: Duloxetine 60 MG DR Capsule PO SCH (08:53)
[2018-10-31] MEDS: Multivitamin/Minerals Therapeutic Tablet PO SCH (08:53)
[2018-10-31] MEDS: Folic Acid 1 MG Tablet PO SCH (08:53)
--- NOTE | 2018-10-31 10:30 | P.PNIM ---
Subjective Interval history: in no acute distress. pain is controlled. no dizziness or sob. H/H trend noted. d/w the RN. Physical Exam Vital signs: Vital Signs 10/30/18 12:00 10/30/18 16:00 10/30/18 20:15 Temperature 98.0 F 98 F 99.1 F Pulse Rate 89 93 H 95 H Respiratory Rate 18 18 16 Blood Pressure 108/58 L 101/53 L 120/56 L Pulse Oximetry 97 98 10/31/18 00:00 10/31/18 00:25 10/31/18 04:35 Temperature 100.4 F H 98.6 F Pulse Rate 109 H 98 H Respiratory Rate 17 17 17 Blood Pressure 139/63 120/59 L Pulse Oximetry 95 92 L 10/31/18 08:00 10/31/18 10:05 Temperature 99.4 F Pulse Rate 96 H Respiratory Rate 16 Blood Pressure 127/59 L Pulse Oximetry 93 L 94 L Intake & Output 10/30/18 10/31/18 10/31/18 18:59 06:59 18:59 Intake Total 654 / 654 1868 / 1868 Balance 654 / 654 1868 / 1868 Weight 63.6 kg Intake: IV 54 / 54 1208 / 1208 LR 1000 mL Inj 1,000 ML @ 100 1000 / 1000 mls/hr IV.CONT .Q10H MAGNUS Rx#: [id number] Cleocin Inj 600 MG In NS Inj 50 54 / 54 ML @ 100 mls/hr IV.SIG Q8H MAGNUS Rx#:[id number] Cleocin Inj 600 MG In NS Inj 208 / 208 100 ML @ 208 mls/hr IV.SIG Q8H MAGNUS Rx#:[id number] Oral 600 / 600 660 / 660 Other: # Voids 2 2 Date of Last Bowel Movement 10/28/18 10/28/18 # Bowel Movements 0 0 Constitutional no acute distress Routine Respiratory Exam Present CTA bilaterally Routine Cardiovascular Exam Present RRR Routine Abdominal Exam Present soft Routine Extremities Exam Comments: no pedal edema. Routine Neurological Exam Present alert Urinary Catheter Management Straight: Cath placed during this visit: yes Reason for continuing: Not indwelling catheter Insertion date: 10/30/18 Insertion time: 06:30 Results Labs CBC & Chem 7: 10/31/18 06:00 10/30/18 04:30 Assessment and Plan Plan Ms. Alfonso is a pleasant and active 83 year-old female with a left femoral neck intertrochanteric fracture. Left hip fracture -consult to orthopedic surgery - s/p intramedullary nailing. -continue with pain control. -Consulted physical therapy -Consulted case management for assistance with discharge planning Elevated blood pressure- has improved. -Denies hypertension -BP elevated, likely secondary to pain and anxiety Leukocytosis- likely reactive -resolved -Anemia- post-op H/H trending down; will transfuse with PRBC today. Dyslipidemia -Continue home atorvastatin Anxiety -Continue home duloxetine -GERD -Continue home AcipHex or formulary equivalent DVT prophylaxis -subq Lovenox Discharge Planning: dc to SNF in am if stable. Progress Note: Quality VTE Deep Vein Thrombosis/Pulmonary Embolism Present on Admission: No
[2018-10-31] MEDS: Enoxaparin Inj 40 MG/0.4 ML Syringe SQ SCH (12:48)
--- NOTE | 2018-10-31 15:38 | XR ---
EXAM DATE: 10/31/2018 2:56 PM EST AGE/SEX: 83 years / Female INDICATIONS: Pain in left knee. CLINICAL DATA: This is the patient's subsequent encounter. Patient reports that signs and symptoms h ave been present for 4 - 6 days and indicates a pain score of 4/10. MEDICAL/SURGICAL HISTORY: Gastroesophageal reflux disease. None. COMPARISON: No prior exams available for comparison. FINDINGS: Diffuse osteopenia. Osseous structures are normal alignment. No evidence of fracture. Advanced hypert rophic changes in the patellofemoral articulation. The medial lateral compartment is normal with. Pro minent soft tissue swelling and edema in the lateral thigh. The suprapatellar soft tissues are normal in thickness. No radiopaque foreign bodies. CONCLUSION: 1. Advanced patellofemoral arthropathy. 2. Soft tissue swelling/edema lateral thigh. Electronically signed by: Zenon Ayon MD Board Certified Radiologist 10/31/2018 3:36 PM EST
[2018-11-01] MEDS: Sod Chloride 0.9% Inj 1,000 ML IV.CONT SCH ×3 (00:06→18:38)
[2018-11-01 03:17] VITALS: RESP 18
[2018-11-01 08:26] LABS: Hematocrit 30.7 % (35.0-46.0); Hemoglobin 10.8 gm/dL (11.6-15.3)
--- NOTE | 2018-11-01 09:15 | P.PNIM ---
Subjective Interval history: in no acute distress. pain is controlled. no sob,dizziness. d/w the RN and no acute issues over night. Physical Exam Vital signs: Vital Signs 10/31/18 10:05 10/31/18 12:00 10/31/18 15:10 Temperature 98.4 F 98.1 F Pulse Rate 96 H 97 H Respiratory Rate 18 16 Blood Pressure 129/16 L 126/58 L Pulse Oximetry 94 L 93 L 10/31/18 15:28 10/31/18 16:00 10/31/18 18:01 Temperature 98.1 F 98.8 F 98.8 F Pulse Rate 92 H 99 H 93 H Respiratory Rate 16 18 16 Blood Pressure 116/53 L 126/58 L 130/61 Pulse Oximetry 97 94 L 97 10/31/18 18:02 10/31/18 18:04 10/31/18 18:21 Temperature 98.8 F 98.8 F 98.8 F Pulse Rate 99 H 98 H 93 H Respiratory Rate 16 16 18 Blood Pressure 127/61 127/61 160/75 H Pulse Oximetry 94 L 92 L 98 10/31/18 20:28 10/31/18 23:55 11/01/18 00:05 Temperature 97.6 F 98.2 F Pulse Rate 101 H 91 H Respiratory Rate 18 17 16 Blood Pressure 102/57 L 155/77 H Pulse Oximetry 95 92 L 11/01/18 03:16 11/01/18 03:44 Temperature 97.6 F 97.8 F Pulse Rate 91 H 88 Respiratory Rate 18 18 Blood Pressure 105/58 L 166/79 H Pulse Oximetry 95 93 L Intake & Output 10/31/18 11/01/18 11/01/18 18:59 06:59 18:59 Intake Total 1224 / 1224 208 / 208 Balance 1224 / 1224 208 / 208 Intake: IV 104 / 104 208 / 208 Cleocin Inj 600 MG In NS Inj 104 / 104 208 / 208 100 ML @ 208 mls/hr IV.SIG Q8H MAGNUS Rx#:[id number] Oral 720 / 720 Intake (Blood Product) Amt 400 / 400 0 / 0 Rbc As-3 Leukoreduced Unit 0 / 0 0 / 0 [id number] Rbc As-3 Leukoreduced Unit 400 / 400 [id number] Other: # Voids 3 1 Date of Last Bowel Movement 10/28/18 10/28/18 Constitutional no acute distress Routine Respiratory Exam Present CTA bilaterally Routine Cardiovascular Exam Present RRR Routine Abdominal Exam Present soft Routine Extremities Exam Comments: no pedal edema. Routine Neurological Exam Present alert and oriented X3 Urinary Catheter Management Straight: Cath placed during this visit: yes Reason for continuing: Not indwelling catheter Insertion date: 10/30/18 Insertion time: 06:30 Results Labs CBC & Chem 7: 11/01/18 07:10 10/30/18 04:30 Imaging Imaging: Impressions Knee X-Ray 10/31/18 14:27 CONCLUSION: 1. Advanced patellofemoral arthropathy. 2. Soft tissue swelling/edema lateral thigh. Assessment and Plan Plan Ms. Alfonso is a pleasant and active 83 year-old female with a left femoral neck intertrochanteric fracture. Left hip fracture -consult to orthopedic surgery - s/p intramedullary nailing. -continue with pain control. -Consulted physical therapy -Consulted case management for assistance with discharge planning Elevated blood pressure- has improved. -Denies hypertension -BP elevated, likely secondary to pain and anxiety Leukocytosis- likely reactive -resolved -Anemia- post-op transfused with PRBC with improved H/H. Dyslipidemia -Continue home atorvastatin Anxiety -Continue home duloxetine -GERD -Continue home AcipHex or formulary equivalent DVT prophylaxis -subq Lovenox Discharge Planning: dc to SNF today after cleared by ortho. f/u; pcp and ortho. see med list. E-Foarsce was consulted before discharge. time spent 35 min. Progress Note: Quality VTE Deep Vein Thrombosis/Pulmonary Embolism Present on Admission: No
--- NOTE | 2018-11-01 09:19 | P.DS ---
DS: Providers Date of admission: 10/29/18 00:17 Primary care physician: UNKNOWN Consults: 10/29/18 00:05 Consult to Orthopedic Surgery Routine Consulting Provider: Marcello Harris Reason for Consultation: Left Hip Fx CONSULT FOR AM Notified:: Service Spoke with:: precious Date Notified:: 10/29/18 Time Notified:: 00:39 Ordering Provider: JL 10/29/18 16:42 HUB Only Consult Order Routine Consulting Provider: Lala Reeves 10/30/18 15:08 HUB Only Consult Order Routine Consulting Provider: Amari Sánchez DS: Summary patient was admitted with left hip fracture- she underwent intramedullary nailing. she was found to have post-op anemia for which she received PRBC transfusion. otherwise the course in the hospital was uneventful. she will be discharged to rehab. Time Spent with Patient Total time spent providing and/or coordinating discharge services: Greater than 30 minutes Specific discharge activities: 35 min. Quality: VTE Deep Vein Thrombosis/Pulmonary Embolism Present on Admission: No Exam Narrative Exam Narrative: patient in no acute distress. S1/S2 heard/ abdomen is soft/ bilateral air entry present/ no pedal edema/ patient is awake and alert. Results Procedures completed during hospitalization: left hip fracture- s/p intramedullary nailing. Labs on day of discharge: Labs from last 24 hours 11/01/18 10/31/18 07:10 12:50 Hgb 10.8 L D Hct 30.7 L MTS Gel Crossmatch See Detail Impressions ITS Impressions Ankle X-Ray 10/28/18 22:10 CONCLUSION: 1. No definite acute fracture. Chest X-Ray 10/28/18 22:11 CONCLUSION: 1. No acute cardiopulmonary disease. Femur X-Ray 10/28/18 22:11 CONCLUSION: 1. Left femoral intertrochanteric fracture. Hip X-Ray 10/29/18 00:00 CONCLUSION: Expected radiographic appearance post nail and reagan fixation of intertrochanteric fracture of the left femur. Normal alignment. Knee X-Ray 10/31/18 14:27 CONCLUSION: 1. Advanced patellofemoral arthropathy. 2. Soft tissue swelling/edema lateral thigh. Discharge Plan Discharge Disposition Patient Disposition: 03 Discharge to SNF Discharge Condition Condition: Fair Discharge Order Discharge Orders: Discharge Order (Routine); Ordered 02/13/19 Ordered By: Olga Cruz Physicians Team Primary Care Provider: UNKNOWN, Attending Provider: Olga Cruz Other Providers: Marcello Harris ; Lala Reeves ; Vivi [place],Amari Rxs /Orders / Referrals /Forms Prescriptions: New aspirin 81 mg tablet,chewable 81 mg PO BID 30 Days Qty: 60 RF: 0 nuakiknr-fmrg-HG-calcium-mins [Thera M Plus (ferrous fumarat)] 9 mg iron-400 mcg Tablet 1 tab PO DAILY 30 Days Qty: 30 RF: 0 Continue rabeprazole 20 mg Tablet,Delayed Release (Dr/Ec) 20 mg PO DAILY RF: 0 atorvastatin 20 mg Tablet 20 mg PO QPM RF: 0 duloxetine 60 mg Capsule,Delayed Release(Dr/Ec) 60 mg PO DAILY RF: 0 Referrals: UNKNOWN, [Primary Care Provider] - See Instructions Discharge Instructions Patient Printed Instructions: Hydrocodone/Acetaminophen (By mouth), Laxative, Stool Softeners (By mouth), How to Choose and Use a Walker (GEN), Anemia (DC), Fall Prevention (DC), ORIF of Hip Fracture (DC) Additional Instructions: Prescriptions sent at time of discharge Follow up as directed 50% weight bearing Daily dry dressing change Discharge Interventions Interventions: Discharge Planning - Case Management Last Done: 10/31/18 16:02 Status ED Status: Left Department
[2018-11-01] MEDS: Multivitamin/Minerals Therapeutic Tablet PO SCH (09:32)
[2018-11-01] MEDS: Folic Acid 1 MG Tablet PO SCH (09:32)
[2018-11-01] MEDS: Duloxetine 60 MG DR Capsule PO SCH (09:33)
[2018-11-01] MEDS: Senna/Docusate Sodium 8.6/50 MG Tablet PO SCH (10:41)
[2018-11-01] MEDS: Enoxaparin Inj 40 MG/0.4 ML Syringe SQ SCH (12:05)
[2018-11-01 14:49] VITALS: TEMP 98.3
[2018-11-01 19:09] VITALS: BP 163/89; PULSE 93; O2SAT 94
== END 2018-11-01 19:31 | DRG 482 ==
LOC: PHED 21:04 → PHEDA 10-29 00:17 → N06 10-29 03:46
PROVIDERS: ADMIT Internal Medicine; ATTEND Internal Medicine
PROC: ORIFHIP (2018-10-29 11:03)
CPT/HCPCS: 36430; 51798; 71010; 71045; 73502; 73552; 73560; 73610; 76000; 80053; 81001; 85014; 85018; 85025; 85610; 85730; 86850; 86900; 86901; 86923; 93005; 94150; 97110; 97116; 97162; 97167; 97530; 97535; 99285; C1713; C1776; J1580; J1650; J1940; J2270; J2370; J2405; J2704; J2710; J3010; J3370; J7030; J7050; J7120; P9016